=== PATIENT | male | born 1975 | race Two or more races ===

== ENCOUNTER 2024-05-17 09:55 | Emergency (ER) | payer SELFPAY ==
[~2024-05-17] VITALS: Ht 170.2 cm; Wt 82.9 kg
--- NOTE | 2024-05-17 10:24 | ED.PDOC ---
History of Present Illness HPI Comments 48-year-old male presents with a chief complaint of left arm numbness and tingling s/p falling off a horse. Patient states that he was bucked off a horse x 1 hour ago and now has a decreased ROM to his left arm and is not able to feel or clench his hand. Patient has an obvious deformity to his left shoulder. Patient denies losing consciousness and did not hit his head. No other symptoms or modifying factors present at this time. Chief Complaint: Fall Injury Time Seen by MD: 10:17 Reviewed Notes: Medications, Allergies Allergies: Coded Allergies: NO KNOWN ALLERGIES (Unverified , 05/17/24) Information Source: Patient Mode of Arrival: Ambulatory Severity: Moderate Timing: Hours Duration: Since onset Prehospital treatment: None Constitutional: denies: chills, diaphoresis, fatigue, fever, malaise, sweats, weakness, others EENTM: denies: blurred vision, double vision, ear bleeding, ear discharge, ear drainage, ear pain, ear ringing, eye pain, eye redness, hearing loss, mouth pain, mouth swelling, nasal discharge, nose bleeding, nose congestion, nose pain, photophobia, tearing, throat pain, throat swelling, voice changes, others Respiratory: denies: cough, hemoptysis, orthopnea, SOB at rest, shortness of breath, SOB with excertion, stridor, wheezing, others Cardiovascular: denies: chest pain, dizzy spells, diaphoresis, Dyspnea on exertion, edema, irregular heart beat, left arm pain, lightheadedness, palpitations, PND, syncope, others Gastrointestinal: denies: abdomen distended, abdominal pain, blood streaked bowels, constipated, diarrhea, dysphagia, difficulty swallowing, hematemesis, melena, nausea, poor appetite, poor fluid intake, rectal bleeding, rectal pain, vomiting, others Genitourinary: denies: burning, dysuria, flank pain, frequency, hematuria, incontinence, penile discharge, penile sore, pain, testicle pain, testicle swelling, urgency, others Neurological: reports: numbness; denies: dizziness, fainting, headache, left sided numbness, left sided weakness, paresthesia, pre-existing deficit, right sided numbness, right sided weakness, seizure, speech problems, tingling, tremors, weakness, others Musculoskeletal: reports: joint pain, muscle pain; denies: back pain, gout, joint swelling, muscle stiffness, neck pain, others Integumetry: denies: bruises, change in color, change in hair/nails, dryness, laceration, lesions, lumps, rash, wounds, others Allergic/Immunocompromised: denies: Difficulty Healing, Frequent Infections, Hives, Itching, others Hematologic/Lymphatic: denies: anemia, blood clots, easy bleeding, easy bruising, swollen glands, others Endocrine: denies: excessive hunger, excessive sweating, excessive thirst, excessive urination, flushing, intolerance to cold, intolerance to heat, unexplained weight gain, unexplained weight loss, others Psychiatric: denies: anxiety, bipolar disorder, depression, hopeless, panic disorder, schizophrenia, sleepless, suicidal, others All Other Systems: Reviewed and Negative Physical Exam General Appearance: No Apparent Distress, Normal HEENT: Normal ENT Inspection, Pharynx Normal, TMs Normal Neck: Full Range of Motion, Non-Tender, Normal, Normal Inspection Respiratory: Chest Non-Tender, Lungs Clear, No Accessory Muscle Use, No Respiratory Distress, Normal Breath Sounds Cardiovascular: No Edema, No JVD, No Murmur, No Gallop, Normal Peripheral Pulses, Regular Rate/Rhythm Breast Exam: Deferred Gastrointestinal: No Organomegaly, Non Tender, No Pulsatile Mass, Normal Bowel Sounds, Soft Genitalia: Deferred Pelvic: Deferred Rectal: Deferred Extremities: Decreased range of motion, Tender Neurologic: Other (Numbness/Tingling to left arm, unable to move extremity ) Cerebellar Function: Normal Reflexes: Normal Skin: Dry, Normal Color, Warm Lymphatic: No Adenopathy Was a procedure done? Was a procedure done?: No Differential Dx Considerations may include: fracture, neuropraxia, cervical fracture X-Ray, Labs, Meds, VS Vital Signs Date Time Temp Pulse Resp B/P (MAP) Pulse Ox O2 Delivery O2 Flow Rate FiO2 05/17/24 10:58 97.9 92 14 126/87 (100) 97 97.9 05/17/24 10:14 97.6 77 18 159/99 (119) 96 Current Medications Medications (Trade) Dose Ordered Sig/Dalia Route Start Time Stop Time Status Last Admin Acetaminophen/ Hydrocodone Bitart ([place] 5/325MG Tab) 1 tab ONCE ONCE PO 05/17/24 10:30 05/17/24 10:31 DC 05/17/24 11:57 Time of 1ST Reevaluation: 10:47 Reevaluation 1ST: Unchanged Patient Education/Counseling: Diagnosis, Treatment, Prognosis Family Education/Counseling: No Family Present Departure 1 Departure Time of Disposition: 12:37 (Patient with concern for nerve injury, possible spinal cord injury. I explained to patient this and he decided to ama despite the risks. ) Impression: Primary Impression: Animal-rider injured by fall from or being thrown from horse in noncollision accident, initial encounter Additional Impressions: Left arm pain Left hand weakness Disposition: 07 LEFT AGAINST MEDICAL ADVICE Condition: Guarded Critical Care Note Critical Care Time?: No Stability Stability form required: No I personally scribed for KYLEE FERNANDO MD ([email or web address]) on 05/17/24 at 10:24. Electronically submitted by Jose Mo ([email or web address]). KYLEE FERNANDO MD May 17, 2024 10:24
--- NOTE | 2024-05-17 10:57 | DVH ---
EXAM: CT HEAD WITHOUT CONTRAST INDICATION: fell off a horse TECHNIQUE: CT of the head without intravenous contrast. Radiation Dose Information: CT Dose: CTDI volume is 56.25 mGy. Dose-length product is 901.67 mGy*cm The dose indicators for CT are the volume Computed Tomography (CT) Dose Index (CTDIvol) and the Dose Length Product (DLP), and are measured in units of mGy and mGy-cm, respectively. These indicators are not patient dose, but values generated from the CT scanner acquisition factors. The report includes radiation exposure data for exposures received during this examination. COMPARISON: None FINDINGS: There is no evidence of acute intracranial hemorrhage, extra-axial collection, mass effect, midline s hift, herniation or hydrocephalus. The ventricles, sulci and cisterns are age appropriate. The sanchez-white differentiation is intact. Small left maxillary sinus mucoperiosteal thickening. Scattered bilateral ethmoid air cell opacities . Scattered hypodensities throughout the maxilla, suggestive of odontogenic disease. Small left frontal scalp hematoma soft tissue swelling. No acute fracture is appreciated. IMPRESSION: 1. No CT evidence of acute intracranial abnormality. Left frontal scalp hematoma and soft tissue swel ling with no underlying fracture appreciated. HS:Y
[2024-05-17 10:58] VITALS: BP 126/87; PULSE 92; RESP 14; TEMP 97.9; O2SAT 97
--- NOTE | 2024-05-17 11:05 | DVH ---
EXAM: CT CERVICAL WITHOUT CONTRAST INDICATION: fell off a horse EXAM DATE: 05/17/2024 10:30 AM COMPARISON: CT HEAD WITHOUT CONTRAST on DOS: 05/17/24 TECHNIQUE: Multiple axial CT images of the cervical spine were obtained using bone algorithm. Axial a nd coronal reformatting was done. Bone and soft tissue windows were reviewed. Radiation Dose Information: CT Dose: CTDI volume is 24.32 mGy. Dose-length product is 613.95 mGy*cm FINDINGS: The cervical alignment is intact. No acute cervical spine fracture is identified. The vertebral body heights are intact. No suspicious osseous lesions are identified. Minimal narrowing of the C6-7 disc space. Calcification of the posterior longitudinal ligament at thi s level. Mild degenerative changes of the atlantoaxial joint. There is no prevertebral soft tissue swelling. There is discontinuity of the left zygomatic arch. IMPRESSION: 1. No evidence of acute cervical spine fracture or traumatic malalignment. 2. Discontinuity of the left zygomatic arch. Could represent an age-indeterminate fracture. Recommend correlation with point tenderness to exclude acute fracture. 3. All CT scans at this medical facility are performed using dose modulation techniques as appropriat e to a performed exam including the following: Automated exposure control was utilized; adjustment of the MA and/or KV according to patient size; and use of iterative reconstruction technique. HS:Y
--- NOTE | 2024-05-17 11:11 | DVH ---
XY CHEST TWO VIEWS ROUTINE CLINICAL HISTORY: fell off a horse COMPARISON: None TECHNIQUE: Frontal and lateral view of the chest was obtained FINDINGS: Lines and Tubes: None Lungs: No focal consolidation. Pleura: No effusion. No pneumothorax. Cardiomediastinal contours: Unremarkable Bones: No acute osseous abnormality. Multilevel chronic left-sided rib fracture deformities. IMPRESSION: 1. No radiographic evidence of acute cardiopulmonary disease. HS:Y
--- NOTE | 2024-05-17 11:12 | DVH ---
CLINICAL INDICATION: fell off a horse TECHNIQUE: Left HUMERUS XRAY Comparison: None FINDINGS/IMPRESSION: There is no evidence of acute fracture or dislocation. The alignment is anatomical. There is no radiopaque foreign body. HS:Y
--- NOTE | 2024-05-17 11:15 | DVH ---
PROCEDURE: Left forearm radiographs. INDICATION: fell off a horse TECHNIQUE: 3 views of the left forearm were obtained. COMPARISON: None FINDINGS: There is no evidence of fracture or dislocation. Joint spaces are maintained. The soft tis sues are unremarkable. IMPRESSION: 1. No fracture or dislocation.
--- NOTE | 2024-05-17 11:16 | DVH ---
PROCEDURE: Left shoulder radiographs. INDICATION: fall off a horse TECHNIQUE: 2 views of the left shoulder were obtained. COMPARISON: None FINDINGS: There is no evidence of fracture or dislocation. Joint spaces are maintained. The soft tis sues are unremarkable. IMPRESSION: 1. No fracture or dislocation.
[2024-05-17] MEDS: HYDROcodone-ACET 5/325MG TAB PO ONE (11:57)
== END 2024-05-17 12:32 | disposition left against medical advice (07) ==
LOC: ER 09:55
DX: M79.602 Pain in left arm (principal); R53.1 Weakness; R20.0 Anesthesia of skin; V80.010A Animal-rider injured by fall from or being thrown from horse in noncollision accident, initial encounter; Y93.52 Activity, horseback riding; Y92.89 Other specified places as the place of occurrence of the external cause; Y99.8 Other external cause status
CPT/HCPCS: 70450; 71046; 72125; 73030; 73060; 73090